=== PATIENT | female | born 1980 | race African-American/Black ===

== ENCOUNTER 2017-12-21 23:05 | Emergency (ER) | payer OTHER ==
[~2017-12-21] VITALS: Ht 170.2 cm; Wt 127.0 kg
--- NOTE | ~2017-12-21 | EKG ---
[address] [place] [employer] [address] ELECTROCARDIOGRAM REPORT Name: BRITTANY ALLAN Room #: DEP MELANIE Rm#: [id number] Admission: 12/21/17 Attend Phys: Discharge: 12/22/17 Date of : 80 Report #: [id number] THIS REPORT FOR: //name// [facility] ED Test Date: 2017-12-21 Test Time: 23:13:27 Pat Name: BRITTANY ALLAN Department: Room: Gender: F [employer]: : 1980 Requested By: Rosaura Paul Order Number: [id number] MD: Rob Cuadra Measurements Intervals [place] Rate: 87 P: 32 WI: 182 QRS: 18 QRSD: 88 T: 30 QT: 392 QTc: 472 Interpretive Statements Sinus rhythm Normal tracing No previous ECG available for comparison Electronically Signed On 12-22-2017 13:24:28 CDT by Rob Cuadra [email or web address] <ELECTRONICALLY SIGNED> By: Rob Cuadra MD, [facility] 12/22/17 1324 2313 2313 Rob Cuadra MD, FACC /EPI
[~2017-12-21 23:05] MED LIST: IBUPROFEN 200200 M1 PO; IBUPROFEN 800800 M1 PO; NAPROSYN500 MG PO; NORCO 5-325 TA1 EACH PO; ORTHO TRI-CYCL1 EACH PO
[2017-12-21 23:29] LABS: ABSOLUTE NEUTROPHILS 4.4 thou/uL (1.4-8.2); BASOPHILS 0.6 % (0.0-2.0); HEMATOCRIT 36.4 % (37.0-47.0); LYMPHOCYTES 49.5 % (24.0-44.0); MCV 78.7 fL (80.0-100.0); PLATELET COUNT 287 thou/uL (150-400); POLYS 42.9 % (36.0-66.0); RBC 4.63 mil/uL (4.20-5.00); RDW 15.9 % (10.5-14.5); WBC 10.2 thou/uL (4.0-11.0)
[2017-12-21 23:37] LABS: ANION GAP 7 mmol/L (7-16); BUN 14 mg/dL (7-18); CALCIUM 8.6 mg/dL (8.5-10.1); CHLORIDE 102 mmol/L (98-107); CO2 28 mmol/L (21-32); GLUCOSE 136 mg/dL (74-106); POTASSIUM 3.4 mmol/L (3.5-5.1); SODIUM 137 mmol/L (136-145)
[2017-12-21 23:44] LABS: TROPONIN-I < 0.04 ng/mL (<0.06)
[2017-12-22] MEDS ORDERED: NAPROSYN500 MG PO (02:02)
[2017-12-22 02:24] VITALS: BP 122/75
== END 2017-12-22 02:25 | disposition home or self-care (01) ==
LOC: ER 23:05
PROVIDERS: Emergency Medicine
DX: R07.9 Chest pain, unspecified (principal)

== ENCOUNTER 2019-08-29 07:58 | Emergency (ER) | payer OTHER ==
[~2019-08-29] VITALS: Ht 170.2 cm; Wt 148.8 kg
[2019-08-29 08:35] LABS: URINE BILIRUBIN NEGATIVE (Negative); URINE BLOOD 3+ (Negative); URINE CLARITY SL CLOUDY; URINE COLOR YELLOW; URINE GLUCOSE-RANDOM* NEGATIVE (Negative); URINE KETONES NEGATIVE (Negative); URINE NITRITE-REFLEX NEGATIVE (Negative); URINE PROTEIN (DIPSTICK) NEGATIVE (Negative); URINE UROBILINOGEN 0.2 E.U./dl (0.2-1.0)
[2019-08-29 08:38] LABS: URINE LEUKOCYTES-REFLEX 3+ (Negative)
[2019-08-29 09:01] LABS: CASTS None Seen /LPF (None Seen); CRYSTALS None Seen /LPF (None Seen); SQUAMOUS 4-10 Moderate /LPF (0-3); URINE WBC-REFLEX >25 Many /HPF (0-5)
[2019-08-29] MEDS ORDERED: KEFLEX500 M1 PO (09:22)
[2019-08-29] MEDS ORDERED: PHENAZOPYRIDIN200 M2 PO (09:22)
[2019-08-29 09:30] VITALS: BP 163/109
== END 2019-08-29 09:31 | disposition home or self-care (01) ==
LOC: ER 07:58
PROVIDERS: Emergency Medicine
DX: N30.00 Acute cystitis without hematuria (principal)